=== PATIENT | female | born 2000 | race Caucasian/White ===

== ENCOUNTER 2020-06-15 02:58 | Emergency (ER) | payer BC ==
--- NOTE | 2020-06-15 03:39 | EDM.PDOC ---
ED HPI GENERAL MEDICAL PROBLEM - General Chief Complaint: Genitourinary Problem Stated Complaint: URINATING BLOOD Time Seen by Provider: 06/15/20 03:24 Source of Information: Reports: Patient, Family (Mother) History Limitations: Reports: No Limitations - History of Present Illness INITIAL COMMENTS - FREE TEXT/NARRATIVE: Ms. Espinoza is a pleasant 20-year-old woman who now presents the ED stating that she developed burning and suprapubic pain, dysuria, and urinary frequency around 23:00 last night. The last time she urinated, there may have been some bloody discoloration on the toilet paper. No recent fever, nausea, vomiting, or flank pain. She took some [id number] supplements, which did not improve her symptoms. The patient states that she has had similar symptoms in the past, due to a UTI. Here in the ED, the patient's initial BP is found to be slightly elevated at 141/93, otherwise, she is hemodynamic stable, afebrile, saturating 100% on room air. Prior to last night, the patient denies having a recent fever, chills, sore throat, ear pain, nasal or sinus congestion, cough, dyspnea, chest pain, palpitations, nausea, vomiting, constipation, diarrhea, abdominal pain, urinary symptoms, recent weight gain or weight loss, recent bloody bowel movements or black bowel movements, recent joint aches, headaches, or rashes. The patient's PCP is Ernestine Bowman NP. She did not receive an influenza vaccine this season. Pelvic Pain Score (Numeric/FACES): 8 - Related Data Allergies Allergy/AdvReac Type Severity Reaction Status Date / Time No Known Allergies Allergy Verified 06/15/20 03:08 Home Meds: Home Meds nitrofurantoin macrocrystaL [Nitrofurantoin] 1 cap PO Q12H #9 capsule 06/15/20 [Rx] Past Medical History Psychiatric History: Reports: ADD (untreated), Autism - Infectious Disease History Infectious Disease History: Reports: Chicken Pox Social & Family History - Tobacco Use Tobacco Use Status *Q: Current Some Day Tobacco User Tobacco Use Within Last Twelve Months: Vaping (Nicotine) - Alcohol Use Alcohol Use History: Yes Alcohol Use Frequency: Socially - Recreational Drug Use Recreational Drug Use: No - Living Situation & Occupation Living situation: Reports: Single, with Family 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 ED EXAM, RENAL/ - Physical Exam Exam: See Below Exam Limited By: No Limitations General Appearance: Alert, WD/WN, No Apparent Distress Eye Exam: Bilateral Eye: EOMI, Normal Inspection Ears: Normal External Exam, Hearing Grossly Normal Nose: Normal Inspection Throat/Mouth: Normal Inspection, Normal Lips, Normal Voice, No Airway Compromise Head: Atraumatic, Normocephalic Neck: Normal Inspection, Full Range of Motion Respiratory/Chest: No Respiratory Distress, Lungs Clear, Normal Breath Sounds, No Accessory Muscle Use Cardiovascular: Normal Peripheral Pulses, Regular Rate, Rhythm, No Edema, No Gallop, No JVD, No Murmur, No Rub GI/Abdominal: Normal Bowel Sounds, Soft, Non-Tender (including suprapubically), No Organomegaly, No Distention, No Abnormal Bruit, No Mass Back Exam: Normal Inspection, Full Range of Motion. No: CVA Tenderness (L), CVA Tenderness (R) Extremities: Normal Inspection, Normal Range of Motion, No Pedal Edema, Normal Capillary Refill Neurological: Alert, Oriented, Normal Cognition, No Motor/Sensory Deficits Psychiatric: Normal Affect Skin Exam: Warm, Dry, Intact, Normal Color, No Rash Course - Vital Signs Last Recorded V/S: Last Vital Signs Temp 36.6 C 06/15/20 03:05 Pulse 93 06/15/20 03:05 Resp 16 06/15/20 04:03 BP 140/88 06/15/20 04:03 Pulse Ox 96 06/15/20 04:03 - Orders/Labs/Meds Orders: Active Orders 24 hr Category Date Time Status CULTURE URINE [RM] Stat Lab 06/15/20 03:15 Received Labs: Laboratory Tests 06/15/20 06/15/20 Range/Units 03:15 03:27 Urine Color Moran H (Yellow) Urine Appearance Clear (Clear) Urine pH 7.0 (5.0-8.0) Ur Specific Rienzi 1.010 (1.005-1.030) Urine Protein Negative (Negative) Urine Glucose (UA) Negative (Negative) Urine Ketones Negative (Negative) Urine Occult Blood 3+ H (Negative) Urine Nitrite Negative (Negative) Urine Bilirubin Negative (Negative) Urine Urobilinogen 0.2 (0.2-1.0) Ur Leukocyte Esterase 2+ H (Negative) Urine RBC 0-5 (0-5) /hpf Urine WBC 30-40 H (0-5) /hpf Urine WBC Clumps Rare (NOT SEEN) /hpf Ur Squamous Epith Cells Not seen (0-5) /hpf Urine Bacteria Rare (FEW) /hpf Urine Mucus Not seen (FEW) /hpf Urine HCG, Qual Negative (NEGATIVE) Meds: Medications Discontinued Medications Generic Name Dose Route Start Last Admin Trade Name Freq PRN Reason Stop Dose Admin Nitrofurantoin Macrocrystals 100 mg 06/15/20 03:42 06/15/20 03:49 Nitrofurantoin Monohydrate/Macrocrystalline 100 Mg Cap PO 06/15/20 03:43 100 mg ONETIME STA Administration Phenazopyridine HCl 95 mg 06/15/20 03:43 06/15/20 03:49 Phenazopyridine 95 Mg Tab PO 06/15/20 03:44 95 mg ONETIME STA Administration - Re-Assessments/Exams Free Text/Narrative Re-Assessment/Exam: 06/15/20 03:34 As above, the patient has had burning suprapubic pain, dysuria, and urinary frequency since around 23:00. No recent fever, nausea, vomiting, or flank pain. Her physical exam completely unremarkable, including no suprapubic tenderness or CVA tenderness. She has already provided a urine sample for urinalysis; I have added a urine test. 06/15/20 03:42 The patient's urinalysis is remarkable for 3+ occult blood with 0-5 RBCs, 2+ leukocyte esterase with 30-40 WBCs, nitrate negative with rare bacteria, and no squamous epithelial cells seen. Based on the pyuria above, I have ordered a urine culture, and will start the patient on nitrofurantoin and Pyridium. Departure - Departure Time of Disposition: 03:48 Disposition: Home, Self-Care 01 Condition: Good Clinical Impression: Cystitis - Discharge Information *PRESCRIPTION DRUG MONITORING PROGRAM REVIEWED*: Not Applicable *COPY OF PRESCRIPTION DRUG MONITORING REPORT IN PATIENT LEON: Not Applicable Prescriptions: nitrofurantoin macrocrystaL [Nitrofurantoin] 1 cap PO Q12H #9 capsule Instructions: Urinary Tract Infection, Adult, [id number] Referrals: Ernestine Bowman NP [Ordering Only Provider] - Forms: ED Department Discharge Additional Instructions: You were seen in the emergency room after developing burning lower abdominal pain, along with painful urination and the sensation of needing to urinate often, last night. Work-up in the ER included a urinalysis and a urine test. Your urinalysis found white blood cells in your urine, most likely caused by cystitis (a urinary tract infection). A sample of your urine has been sent for culture. You have been started on the antibiotic nitrofurantoin, and a prescription for nitrofurantoin has been sent to the [facility], located in the [place]. Take 1 tablet of nitrofurantoin every 12 hours, starting this evening, 06/15/2020, as prescribed. Finish the entire prescription unless told otherwise by a provider. You have also been started on Pyridium, a medicine to relieve the pain from cystitis. Pyridium is available [id number], sold as Azo. You may take 1 tablet of Azo 3 times a day, for 2 days, for a total of 6 tablets. Be aware that the first of those 6 tablets was given to you in the ER. Be aware that Azo will turn your urine orange - that is normal. We recommend that you stay adequately hydrated. It does not really matter what type of fluid you drink, just so long as you do not get dehydrated. We recommend that you contact the office of your PCP, Ernestine Bowman NP, this coming 06/18/2020, to have them check on your urine culture results, to make sure that you are on the correct antibiotic. If any other problems, please do not hesitate to return to the ER. Sepsis Event Note (ED) - Evaluation Sepsis Screening Result: No Definite Risk - Focused Exam Vital Signs: Vital Signs Temp Pulse Resp BP Pulse Ox 06/15/20 04:03 16 140/88 96 06/15/20 03:05 36.6 C 93 19 141/93 H 100 - My Orders Last 24 Hours: My Active Orders 06/15/20 03:15 CULTURE URINE [RM] Stat - Assessment/Plan Last 24 Hours: My Active Orders 06/15/20 03:15 CULTURE URINE [RM] Stat
[2020-06-15] MEDS ORDERED: Nitrofurantoin Monohydrate/Macrocrystalline 100 MG Cap PO STA (03:42)
[2020-06-15] MEDS ORDERED: Phenazopyridine 95 MG Tab PO STA (03:43)
== END 2020-06-15 04:03 | disposition home or self-care (01) ==
LOC: JD.ED 02:58
DX: N30.90 Cystitis, unspecified without hematuria (principal); Z72.0 Tobacco use
CPT/HCPCS: 81001; 81025; 87086; 99284; A9270; 99283

== ENCOUNTER 2022-04-14 20:17 | Emergency (ER) | payer BC, OTHER ==
[2022-04-14] MEDS ORDERED: cefTRIAXone 1 GM, Lidocaine 1% 2.1 ML IM ONE ×2 (20:48)
[2022-04-14] MEDS ORDERED: Ketorolac 60 MG/2 ML SDV IM ONE (20:49)
== END 2022-04-14 21:41 | disposition home or self-care (01) ==
LOC: JD.ED 20:17
DX: N39.0 Urinary tract infection, site not specified (principal); F17.210 Nicotine dependence, cigarettes, uncomplicated
CPT/HCPCS: 81001; 96372; 99283; J0696; J1885; J3490